=== PATIENT | female | born 1945 | race Caucasian/White ===

== ENCOUNTER → 2016-10-13 | Outpatient (CLI) | payer MEDICARE ==
[~2016-10-13] MED LIST: ATENOLOL50 MG PO; BIAXIN500 MG PO; CLARITIN10 MG PO; DAYPRO600 M1 PO; LIPITOR10 MG PO; LISINOPRIL/HCTZ1 TA4 PO; PRILOSEC40 MG PO; TESSALON PERLE100 M1 PO; ZYRTEC10 M1 PO
== END | disposition home or self-care (01) ==
LOC: MRI 10:35
DX: S83.421A Sprain of lateral collateral ligament of right knee, initial encounter (principal); M17.11 Unilateral primary osteoarthritis, right knee; S83.241A Other tear of medial meniscus, current injury, right knee, initial encounter; S83.281A Other tear of lateral meniscus, current injury, right knee, initial encounter; M71.21 Synovial cyst of popliteal space [Baker], right knee; M25.461 Effusion, right knee; X58.XXXA Exposure to other specified factors, initial encounter; Y93.89 Activity, other specified; Y92.89 Other specified places as the place of occurrence of the external cause; Y99.8 Other external cause status

== ENCOUNTER → 2018-11-06 | Outpatient (CLI) | payer MEDICARE ==
--- NOTE | ~2018-11-06 | EKG ---
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
[2018-11-06 10:32] LABS: BASO % 0.2 % (0.0-1.0); EOS # 0.1 10*3/uL (0.0-0.4); EOS % 1.7 % (1.0-4.0); HEMATOCRIT 39.2 % (37.0-47.0); HEMOGLOBIN 12.2 g/dl (12.0-16.0); LYMPH # 1.8 10*3/uL (1.3-4.4); LYMPH % 22.4 % (27.0-41.0); MEAN CELL VOLUME 90.7 fl (81.0-99.0); MEAN CORPUSCULAR HGB 28.2 pg (27.0-31.0); MEAN CORPUSCULAR HGB CONC 31.1 g/dl (33.0-37.0); MONO # 0.9 10*3/uL (0.1-1.0); MONO % 10.8 % (3.0-9.0); NEUT # 5.3 10*3/uL (2.3-7.9); NEUT % 64.7 % (47.0-73.0); PLATELET COUNT AUTOMATED 216 10*3/uL (130-400); RED BLOOD COUNT 4.32 10*6/uL (4.10-5.10); RED CELL DISTRI WIDTH 14.5 % (0-14.5); WHITE BLOOD COUNT 8.2 10*3/uL (4.8-10.8)
[2018-11-06 11:04] LABS: ALBUMIN 3.5 gm/dl (3.1-4.5); CREATININE 1.14 mg/dL (0.55-1.02); POTASSIUM 4.2 mmol/L (3.5-5.1); TOTAL PROTEIN 7.1 gm/dL (6.4-8.2)
[2018-11-06 11:21] LABS: VITAMIN D, 25-HYDROXY 42.1 ng/mL (30-100)
== END | disposition home or self-care (01) ==
LOC: RESCLI 00:17
PROVIDERS: Hospitalist
DX: K21.9 Gastro-esophageal reflux disease without esophagitis (principal); R60.0 Localized edema; I10 Essential (primary) hypertension; E78.00 Pure hypercholesterolemia, unspecified; E78.5 Hyperlipidemia, unspecified; Z76.89 Persons encountering health services in other specified circumstances; Z72.0 Tobacco use; Z79.899 Other long term (current) drug therapy; Z88.8 Allergy status to other drugs, medicaments and biological substances

== ENCOUNTER → 2018-11-20 | Outpatient (CLI) | payer MEDICARE ==
--- NOTE | ~2018-11-20 | PF ---
[place], [place] PULMONARY FUNCTION TEST NAME: [id number] UNIT #: [id number] ROOM: DOCTOR: SHERRY HAN MD,DALE BIRTHDATE: [birth year] DOS: 11/20/2018 PULMONARY FUNCTION TEST ORDERED BY: Anibal Gallegos MD. HISTORY: The patient is recorded as a 73-year-old female, height of 68 inches, weight of 245 pounds, BMI 37.3. The patient reported symptoms of shortness of breath with exertion. Tobacco use was noted 1 pack of cigarettes per day for 50 years. Tobacco cessation reported 1 year ago. SPIROMETRY: FVC of 3.15 liters, 99% predicted value. The FEV1 of 2.27 liters, 93% predicted value. The ratio of FEV1/FVC was 72%. Flow volume loop was noted as normal. LUNG VOLUME: Thoracic gas volume was recorded as 107%, residual volume 141%, total lung capacity of 118%. The patient's airway resistance and passive conductance was normal. The patient's lung diffusion noted as moderately decreased without correction of carbon monoxide and hemoglobin values. FINAL IMPRESSION: The current test was noted essentially normal except [id number] reduction in lung diffusion, etiology unclear to be correlated with patient's clinical history and radiology data. DALE POWELL MD CM:PFREPORT:PULMONARY FUNCTION TEST [id number] DALE HAN MD
== END | disposition home or self-care (01) ==
LOC: CP 08:15
DX: R06.09 Other forms of dyspnea (principal)

== ENCOUNTER → 2019-02-19 | Outpatient (CLI) | payer MEDICARE | END | disposition home or self-care (01) | LOC: RESCLI 02:18 | DX: I10 Essential (primary) hypertension (principal); E78.5 Hyperlipidemia, unspecified; K21.9 Gastro-esophageal reflux disease without esophagitis; F32.9 Major depressive disorder, single episode, unspecified; L40.9 Psoriasis, unspecified; E55.9 Vitamin D deficiency, unspecified; F17.200 Nicotine dependence, unspecified, uncomplicated; Z79.899 Other long term (current) drug therapy ==

== ENCOUNTER → 2019-03-26 | Outpatient (CLI) | payer MEDICARE | END | disposition home or self-care (01) | LOC: RESCLI 02:05 | PROVIDERS: Internal Medicine | DX: I10 Essential (primary) hypertension (principal); R53.83 Other fatigue; E78.5 Hyperlipidemia, unspecified; K21.9 Gastro-esophageal reflux disease without esophagitis; L40.9 Psoriasis, unspecified; E55.9 Vitamin D deficiency, unspecified; F17.200 Nicotine dependence, unspecified, uncomplicated; F32.9 Major depressive disorder, single episode, unspecified; Z79.899 Other long term (current) drug therapy; Z90.710 Acquired absence of both cervix and uterus; Z90.89 Acquired absence of other organs; Z88.9 Allergy status to unspecified drugs, medicaments and biological substances; Z68.37 Body mass index [BMI] 37.0-37.9, adult ==

== ENCOUNTER 2019-04-01 11:15 | Emergency (ER) | payer MEDICARE ==
[~2019-04-01] VITALS: Ht 172 cm; Wt 102.1 kg
--- NOTE | ~2019-04-01 | EKG ---
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
[2019-04-01 11:41] LABS: BASO % 0.2 % (0.0-1.0); EOS # 0.1 10*3/uL (0.0-0.4); EOS % 0.5 % (1.0-4.0); HEMATOCRIT 39.7 % (37.0-47.0); HEMOGLOBIN 12.5 g/dl (12.0-16.0); LYMPH # 1.4 10*3/uL (1.3-4.4); LYMPH % 14.3 % (27.0-41.0); MEAN CELL VOLUME 88.8 fl (81.0-99.0); MEAN CORPUSCULAR HGB CONC 31.5 g/dl (33.0-37.0); MEAN PLATELET VOLUME 9.1 fl (9.6-12.3); MONO # 0.9 10*3/uL (0.1-1.0); MONO % 9.1 % (3.0-9.0); NEUT # 7.2 10*3/uL (2.3-7.9); NEUT % 75.4 % (47.0-73.0); PLATELET COUNT AUTOMATED 215 10*3/uL (130-400); RED BLOOD COUNT 4.47 10*6/uL (4.10-5.10); WHITE BLOOD COUNT 9.5 10*3/uL (4.8-10.8)
[2019-04-01 11:59] LABS: ALBUMIN 3.3 gm/dl (3.1-4.5); CREATININE 1.22 mg/dL (0.55-1.02); POTASSIUM 4.3 mmol/L (3.5-5.1)
== END 2019-04-01 14:02 | disposition home or self-care (01) ==
LOC: ED 11:15
PROVIDERS: Emergency Medicine
DX: R20.0 Anesthesia of skin (principal); R20.2 Paresthesia of skin; Z79.899 Other long term (current) drug therapy

== ENCOUNTER → 2019-05-02 | Outpatient (CLI) | payer MEDICARE | END | disposition home or self-care (01) | LOC: RESCLI 00:21 | DX: I10 Essential (primary) hypertension (principal); E78.5 Hyperlipidemia, unspecified; K21.9 Gastro-esophageal reflux disease without esophagitis; F32.9 Major depressive disorder, single episode, unspecified; Z79.899 Other long term (current) drug therapy; Z90.710 Acquired absence of both cervix and uterus; Z90.89 Acquired absence of other organs ==

== ENCOUNTER 2019-05-25 10:21 | Emergency (ER) | payer MEDICARE ==
[2019-05-25 11:04] LABS: BASO % 0.2 % (0.0-1.0); EOS % 0.4 % (1.0-4.0); HEMATOCRIT 39.8 % (37.0-47.0); HEMOGLOBIN 12.5 g/dl (12.0-16.0); LYMPH # 1.1 10*3/uL (1.3-4.4); MEAN CELL VOLUME 87.9 fl (81.0-99.0); MEAN CORPUSCULAR HGB 27.6 pg (27.0-31.0); MEAN CORPUSCULAR HGB CONC 31.4 g/dl (33.0-37.0); MEAN PLATELET VOLUME 9.7 fl (9.6-12.3); MONO # 0.7 10*3/uL (0.1-1.0); MONO % 6.3 % (3.0-9.0); NEUT # 9.1 10*3/uL (2.3-7.9); NEUT % 82.6 % (47.0-73.0); PLATELET COUNT AUTOMATED 226 10*3/uL (130-400); RED BLOOD COUNT 4.53 10*6/uL (4.10-5.10); RED CELL DISTRI WIDTH 15.1 % (0-14.5)
[2019-05-25 11:09] LABS: BILIRUBIN NEGATIVE (NEGATIVE); BLOOD NEGATIVE (NEGATIVE); CLARITY SL CLOUDY (CLEAR); COLOR YELLOW (YELLOW); GLUCOSE NEGATIVE (NEGATIVE); KETONE NEGATIVE (NEGATIVE); LEUKO ESTERASE NEGATIVE (NEGATIVE); NITRITE NEGATIVE (NEGATIVE); PH 5.5 (5.0-9.0); UROBILINOGEN 0.2 E.U./dl (0.2-1.0)
[2019-05-25 11:19] LABS: ACT PARTIAL THROMBO TIME 23.9 SECONDS (20.0-32.1); INTERNATIONAL NORM RATIO 0.9 (2.0-3.5)
[2019-05-25 11:23] LABS: ALBUMIN 3.6 gm/dl (3.1-4.5); ALKALINE PHOSPHATASE 101 U/L (45-117); BUN 14 mg/dl (7-24); CHLORIDE 108 mmol/L (98-107); CREATININE 1.11 mg/dL (0.55-1.02); POTASSIUM 4.2 mmol/L (3.5-5.1); SGOT/AST 14 IU/L (3-35); SGPT/ALT 14 U/L (12-78); SODIUM 140 mmol/L (136-145); TOTAL PROTEIN 6.9 gm/dL (6.4-8.2)
[2019-05-25 11:26] LABS: TROPONIN I < 0.015 ng/ml (<0.045)
[2019-05-25 11:32] LABS: RBC 0-2 rbc/hpf (0-2)
== END 2019-05-25 12:01 | disposition short-term general hospital (02) ==
LOC: ED 10:21 → EDBD 10:24 → ED 10:24
PROVIDERS: Emergency Medicine
DX: I63.9 Cerebral infarction, unspecified (principal); I10 Essential (primary) hypertension; K21.9 Gastro-esophageal reflux disease without esophagitis; Z79.899 Other long term (current) drug therapy

== ENCOUNTER 2019-07-09 06:47 | Emergency (ER) | payer MEDICARE ==
[~2019-07-09] VITALS: Wt 109.8 kg
== END 2019-07-09 08:54 | disposition home or self-care (01) ==
LOC: ED 06:47
DX: K94.23 Gastrostomy malfunction (principal); I10 Essential (primary) hypertension; Z79.899 Other long term (current) drug therapy

== ENCOUNTER 2019-07-28 12:24 | Inpatient (IN) | payer MEDICARE ==
[~2019-07-28] VITALS: Ht 167.6 cm; Wt 103.0 kg
[2019-07-28] VITALS (9 sets, daily range): BP systolic 84–116; BP diastolic 33–68
[2019-07-28 14:17] LABS: BASO % 0.3 % (0.0-1.0); EOS # 0.1 10*3/uL (0.0-0.4); EOS % 0.6 % (1.0-4.0); HEMATOCRIT 38.5 % (37.0-47.0); HEMOGLOBIN 12.2 g/dl (12.0-16.0); LYMPH # 1.6 10*3/uL (1.3-4.4); LYMPH % 14.4 % (27.0-41.0); MEAN CELL VOLUME 87.5 fl (81.0-99.0); MEAN CORPUSCULAR HGB 27.7 pg (27.0-31.0); MEAN CORPUSCULAR HGB CONC 31.7 g/dl (33.0-37.0); MEAN PLATELET VOLUME 10.2 fl (9.6-12.3); MONO # 0.7 10*3/uL (0.1-1.0); MONO % 6.5 % (3.0-9.0); NEUT # 8.9 10*3/uL (2.3-7.9); NEUT % 77.6 % (47.0-73.0); PLATELET COUNT AUTOMATED 320 10*3/uL (130-400); RED CELL DISTRI WIDTH 17.8 % (0-14.5); WHITE BLOOD COUNT 11.4 10*3/uL (4.8-10.8)
[2019-07-28 14:28] LABS: ACT PARTIAL THROMBO TIME 27.9 SECONDS (20.0-32.1); INTERNATIONAL NORM RATIO 1.1 (2.0-3.5)
[2019-07-28 14:31] LABS: ALBUMIN 3.2 gm/dl (3.1-4.5); ALKALINE PHOSPHATASE 103 U/L (45-117); BUN 111 mg/dl (7-24); CHLORIDE 113 mmol/L (98-107); CREATININE 9.74 mg/dL (0.55-1.02); LIPASE 274 U/L (73-393); POTASSIUM 4.6 mmol/L (3.5-5.1); SGOT/AST 18 IU/L (3-35); SGPT/ALT 13 U/L (12-78); SODIUM 144 mmol/L (136-145); TOTAL PROTEIN 7.8 gm/dL (6.4-8.2)
[2019-07-28 14:33] LABS: TROPONIN I < 0.015 ng/ml (<0.045)
[2019-07-28 15:18] LABS: BILIRUBIN NEGATIVE (NEGATIVE); BLOOD NEGATIVE (NEGATIVE); CLARITY CLEAR (CLEAR); COLOR YELLOW (YELLOW); GLUCOSE NEGATIVE (NEGATIVE); KETONE NEGATIVE (NEGATIVE); LEUKO ESTERASE 2+ (NEGATIVE); NITRITE POSITIVE (NEGATIVE); SPECIFIC GRAVITY 1.025 (1.005-1.030); UROBILINOGEN 0.2 E.U./dl (0.2-1.0)
[2019-07-28 15:19] LABS: BACTERIA 2+
[2019-07-28] MEDS ORDERED: ASPIRIN CHEWABL81 MG PO (18:32)
[2019-07-28] MEDS ORDERED: FIBERCON625 MG PO (18:37)
[2019-07-28] MEDS ORDERED: HYDR25T PO (18:38)
[2019-07-28] MEDS ORDERED: ZESTRIL40 MG PO (18:39)
[2019-07-28] MEDS ORDERED: QUESTRAN LIGHT4 GM PO (18:40)
[2019-07-28] MEDS ORDERED: ACCUNEB 0.1.25 MG/1 INH (18:41)
[2019-07-28] MEDS ORDERED: ELIQUIS5 M1 PO (18:42)
[2019-07-28] MEDS ORDERED: PREVACID30 M2 PO (18:44)
[2019-07-28] MEDS ORDERED: TOPROL XL100 MG PO (18:45)
[2019-07-28] MEDS ORDERED: Oscal,Oyster S500 MG PO (18:49)
[2019-07-28] MEDS ORDERED: BUDESONIDE0.25 MG/2 INH (19:17)
[2019-07-28] MEDS ORDERED: LOMOTIL 2.5-0.1 EACH PO (19:19)
[2019-07-28] MEDS ORDERED: POTASSIUM CHLO20 MEQ PO (19:19)
[2019-07-29 00:21] VITALS: BP 118/64
[2019-07-29 06:14] LABS: BASO % 0.2 % (0.0-1.0); EOS # 0.1 10*3/uL (0.0-0.4); EOS % 1.5 % (1.0-4.0); HEMATOCRIT 37.2 % (37.0-47.0); HEMOGLOBIN 11.6 g/dl (12.0-16.0); LYMPH # 1.9 10*3/uL (1.3-4.4); LYMPH % 23.7 % (27.0-41.0); MEAN CELL VOLUME 88.6 fl (81.0-99.0); MEAN CORPUSCULAR HGB 27.6 pg (27.0-31.0); MEAN CORPUSCULAR HGB CONC 31.2 g/dl (33.0-37.0); MEAN PLATELET VOLUME 9.9 fl (9.6-12.3); MONO # 0.8 10*3/uL (0.1-1.0); MONO % 9.9 % (3.0-9.0); NEUT # 5.1 10*3/uL (2.3-7.9); NEUT % 63.8 % (47.0-73.0); PLATELET COUNT AUTOMATED 253 10*3/uL (130-400); RED CELL DISTRI WIDTH 17.9 % (0-14.5)
[2019-07-29 06:34] LABS: ALBUMIN 2.9 gm/dl (3.1-4.5); POTASSIUM 3.9 mmol/L (3.5-5.1)
[2019-07-29 06:37] LABS: CREATININE 8.37 mg/dL (0.55-1.02); PHOSPHOROUS 7.6 mg/dL (2.5-4.9); TOTAL PROTEIN 6.7 gm/dL (6.4-8.2)
[2019-07-29 08:00] VITALS: BP 125/76
[2019-07-29 12:00] VITALS: BP 112/59
[2019-07-29 16:00] VITALS: BP 131/62
[2019-07-29 20:00] VITALS: BP 130/65
[2019-07-30] VITALS (9 sets, daily range): BP systolic 91–129; BP diastolic 58–93
[2019-07-30 06:22] LABS: BASO % 0.3 % (0.0-1.0); EOS # 0.1 10*3/uL (0.0-0.4); EOS % 1.5 % (1.0-4.0); HEMOGLOBIN 10.6 g/dl (12.0-16.0); LYMPH # 1.7 10*3/uL (1.3-4.4); MEAN CELL VOLUME 88.8 fl (81.0-99.0); MEAN CORPUSCULAR HGB 27.7 pg (27.0-31.0); MEAN CORPUSCULAR HGB CONC 31.2 g/dl (33.0-37.0); MEAN PLATELET VOLUME 9.6 fl (9.6-12.3); MONO # 0.7 10*3/uL (0.1-1.0); MONO % 8.2 % (3.0-9.0); NEUT # 5.3 10*3/uL (2.3-7.9); NEUT % 67.1 % (47.0-73.0); PLATELET COUNT AUTOMATED 250 10*3/uL (130-400); RED BLOOD COUNT 3.83 10*6/uL (4.10-5.10); RED CELL DISTRI WIDTH 17.8 % (0-14.5); WHITE BLOOD COUNT 7.9 10*3/uL (4.8-10.8)
[2019-07-30 06:31] LABS: ALBUMIN 2.8 gm/dl (3.1-4.5); CREATININE 6.93 mg/dL (0.55-1.02); POTASSIUM 3.6 mmol/L (3.5-5.1); TOTAL PROTEIN 6.7 gm/dL (6.4-8.2)
[2019-07-31] VITALS: BP 150/60
[2019-07-31 06:09] LABS: BASO % 0.3 % (0.0-1.0); EOS # 0.1 10*3/uL (0.0-0.4); EOS % 1.3 % (1.0-4.0); HEMATOCRIT 32.5 % (37.0-47.0); HEMOGLOBIN 10.3 g/dl (12.0-16.0); LYMPH # 2.4 10*3/uL (1.3-4.4); LYMPH % 22.2 % (27.0-41.0); MEAN CORPUSCULAR HGB 28.2 pg (27.0-31.0); MEAN CORPUSCULAR HGB CONC 31.7 g/dl (33.0-37.0); MEAN PLATELET VOLUME 10.2 fl (9.6-12.3); MONO # 0.9 10*3/uL (0.1-1.0); MONO % 8.4 % (3.0-9.0); NEUT # 7.3 10*3/uL (2.3-7.9); NEUT % 66.9 % (47.0-73.0); PLATELET COUNT AUTOMATED 204 10*3/uL (130-400); RED BLOOD COUNT 3.65 10*6/uL (4.10-5.10); RED CELL DISTRI WIDTH 17.2 % (0-14.5); WHITE BLOOD COUNT 10.9 10*3/uL (4.8-10.8)
[2019-07-31 06:29] LABS: ALBUMIN 2.6 gm/dl (3.1-4.5); CREATININE 5.12 mg/dL (0.55-1.02); PHOSPHOROUS 4.2 mg/dL (2.5-4.9); TOTAL PROTEIN 6.3 gm/dL (6.4-8.2)
[2019-07-31 06:31] LABS: POTASSIUM 3.3 mmol/L (3.5-5.1)
[2019-07-31 09:30] VITALS: BP 116/76
[2019-07-31 12:00] VITALS: BP 98/56
[2019-07-31 16:00] VITALS: BP 98/73
[2019-07-31 20:00] VITALS: BP 103/64
[2019-07-31 21:45] LABS: CREATININE 4.3 mg/dL (0.55-1.02); POTASSIUM 2.9 mmol/L (3.5-5.1)
[2019-08-01] VITALS (7 sets, daily range): BP systolic 70–123; BP diastolic 49–72
[2019-08-01 06:44] LABS: BASO % 0.3 % (0.0-1.0); EOS # 0.2 10*3/uL (0.0-0.4); EOS % 1.9 % (1.0-4.0); HEMATOCRIT 30.4 % (37.0-47.0); HEMOGLOBIN 9.8 g/dl (12.0-16.0); LYMPH # 2.2 10*3/uL (1.3-4.4); LYMPH % 23.3 % (27.0-41.0); MEAN CELL VOLUME 87.4 fl (81.0-99.0); MEAN CORPUSCULAR HGB 28.2 pg (27.0-31.0); MEAN CORPUSCULAR HGB CONC 32.2 g/dl (33.0-37.0); MEAN PLATELET VOLUME 10.2 fl (9.6-12.3); MONO # 0.6 10*3/uL (0.1-1.0); MONO % 6.4 % (3.0-9.0); NEUT # 6.3 10*3/uL (2.3-7.9); NEUT % 67.5 % (47.0-73.0); PLATELET COUNT AUTOMATED 186 10*3/uL (130-400); RED BLOOD COUNT 3.48 10*6/uL (4.10-5.10); RED CELL DISTRI WIDTH 17.3 % (0-14.5); WHITE BLOOD COUNT 9.3 10*3/uL (4.8-10.8)
[2019-08-01 07:13] LABS: CREATININE 4.04 mg/dL (0.55-1.02); PHOSPHOROUS 3.9 mg/dL (2.5-4.9)
[2019-08-02] VITALS: BP 102/75
[2019-08-02 08:00] VITALS: BP 108/68
[2019-08-02 08:40] LABS: BASO % 0.2 % (0.0-1.0); EOS # 0.3 10*3/uL (0.0-0.4); EOS % 3.1 % (1.0-4.0); HEMATOCRIT 32.7 % (37.0-47.0); HEMOGLOBIN 10.3 g/dl (12.0-16.0); LYMPH % 21.3 % (27.0-41.0); MEAN CELL VOLUME 86.7 fl (81.0-99.0); MEAN CORPUSCULAR HGB 27.3 pg (27.0-31.0); MEAN CORPUSCULAR HGB CONC 31.5 g/dl (33.0-37.0); MEAN PLATELET VOLUME 10.4 fl (9.6-12.3); MONO # 0.6 10*3/uL (0.1-1.0); MONO % 6.8 % (3.0-9.0); NEUT # 6.4 10*3/uL (2.3-7.9); NEUT % 67.9 % (47.0-73.0); PLATELET COUNT AUTOMATED 203 10*3/uL (130-400); RED BLOOD COUNT 3.77 10*6/uL (4.10-5.10); RED CELL DISTRI WIDTH 17.2 % (0-14.5); WHITE BLOOD COUNT 9.5 10*3/uL (4.8-10.8)
[2019-08-02 08:56] LABS: CREATININE 3.08 mg/dL (0.55-1.02); POTASSIUM 3.3 mmol/L (3.5-5.1)
[2019-08-02 12:00] VITALS: BP 110/65
[2019-08-02] MEDS ORDERED: SODIUM BICARBO650 MG PEG (12:33)
== END 2019-08-02 14:00 | disposition other institution (70) | DRG 682 ==
LOC: ED 12:24 → EDHOLD 16:21 → 4E 16:21
PROVIDERS: Internal Medicine; Internal Medicine Nephrology; Physician Assistant; Registered Nurse; Student in an Organized Health Care Education/Training Program; ADMIT Internal Medicine
PROC: 3E0G76Z Introduction of Nutritional Substance into Upper GI, Via Natural or Artificial Opening (ICD-10-PCS; principal; 2019-07-30)
PROC: 0DH63UZ Insertion of Feeding Device into Stomach, Percutaneous Approach (ICD-10-PCS; principal; 2019-07-30)
DX: N17.0 Acute kidney failure with tubular necrosis (principal); I63.9 Cerebral infarction, unspecified; N30.01 Acute cystitis with hematuria; D68.69 Other thrombophilia; E87.0 Hyperosmolality and hypernatremia; J96.10 Chronic respiratory failure, unspecified whether with hypoxia or hypercapnia; E87.2 Acidosis; E46 Unspecified protein-calorie malnutrition; R13.19 Other dysphagia; K29.70 Gastritis, unspecified, without bleeding; I10 Essential (primary) hypertension; E78.00 Pure hypercholesterolemia, unspecified; K21.9 Gastro-esophageal reflux disease without esophagitis; I95.9 Hypotension, unspecified; I48.91 Unspecified atrial fibrillation; E87.6 Hypokalemia; B96.1 Klebsiella pneumoniae [K. pneumoniae] as the cause of diseases classified elsewhere; Z79.899 Other long term (current) drug therapy; I69.320 Aphasia following cerebral infarction; E83.39 Other disorders of phosphorus metabolism; Z79.82 Long term (current) use of aspirin; Z79.01 Long term (current) use of anticoagulants; Z93.1 Gastrostomy status; Z68.34 Body mass index [BMI] 34.0-34.9, adult

== ENCOUNTER 2019-08-15 16:13 | Inpatient (IN) | payer MEDICARE ==
[~2019-08-15] VITALS: Ht 172.7 cm; Wt 93.9 kg
[2019-08-15 16:13] VITALS: BP 102/56
[~2019-08-15 16:13] MED LIST changes: +ACCUNEB 0.1.25 MG/1 INH; +ASPIRIN CHEWABL81 MG PO; +BUDESONIDE0.25 MG/2 INH; +ELIQUIS5 M1 PO; +FIBERCON625 MG PO; +HYDR25T PO; +LOMOTIL 2.5-0.1 EACH PO; +Oscal,Oyster S500 MG PO; +POTASSIUM CHLO20 MEQ PO; +PREVACID30 M2 PO; +QUESTRAN LIGHT4 GM PO; +SODIUM BICARBO650 MG PEG; +TOPROL XL100 MG PO; +ZESTRIL40 MG PO
[2019-08-15 16:55] LABS: BASO # 0.1 10*3/uL (0.0-0.1); BASO % 0.5 % (0.0-1.0); EOS # 0.2 10*3/uL (0.0-0.4); EOS % 2.2 % (1.0-4.0); HEMATOCRIT 42.2 % (37.0-47.0); LYMPH # 2.4 10*3/uL (1.3-4.4); LYMPH % 22.1 % (27.0-41.0); MEAN CELL VOLUME 94.2 fl (81.0-99.0); MEAN CORPUSCULAR HGB 27.9 pg (27.0-31.0); MEAN CORPUSCULAR HGB CONC 29.6 g/dl (33.0-37.0); MEAN PLATELET VOLUME 10.3 fl (9.6-12.3); MONO # 1.1 10*3/uL (0.1-1.0); MONO % 10.7 % (3.0-9.0); NEUT # 6.8 10*3/uL (2.3-7.9); NEUT % 63.5 % (47.0-73.0); PLATELET COUNT AUTOMATED 305 10*3/uL (130-400); RED BLOOD COUNT 4.48 10*6/uL (4.10-5.10); RED CELL DISTRI WIDTH 18.9 % (0-14.5); WHITE BLOOD COUNT 10.7 10*3/uL (4.8-10.8)
[2019-08-15 17:02] LABS: BILIRUBIN NEGATIVE (NEGATIVE); CLARITY SL CLOUDY (CLEAR); COLOR YELLOW (YELLOW); GLUCOSE NEGATIVE (NEGATIVE); KETONE NEGATIVE (NEGATIVE)
[2019-08-15 17:03] LABS: BLOOD NEGATIVE (NEGATIVE); LEUKO ESTERASE NEGATIVE (NEGATIVE); NITRITE NEGATIVE (NEGATIVE); UROBILINOGEN 0.2 E.U./dl (0.2-1.0)
[2019-08-15 17:08] LABS: ACT PARTIAL THROMBO TIME 25.7 SECONDS (20.0-32.1); INTERNATIONAL NORM RATIO 1.1 (2.0-3.5)
[2019-08-15 17:11] LABS: ALBUMIN 2.8 gm/dl (3.1-4.5); ALKALINE PHOSPHATASE 134 U/L (45-117); BUN 68 mg/dl (7-24); CREATININE 2.21 mg/dL (0.55-1.02); LIPASE 199 U/L (73-393); SGOT/AST 55 IU/L (3-35); SGPT/ALT 67 U/L (12-78); SODIUM 157 mmol/L (136-145); TOTAL PROTEIN 7.1 gm/dL (6.4-8.2)
[2019-08-15 17:11] LABS: BACTERIA 1+
[2019-08-15 17:16] LABS: CHLORIDE 131 mmol/L (98-107); TROPONIN I < 0.015 ng/ml (<0.045)
[2019-08-15] MEDS ORDERED: LEXAPRO10 MG PO (19:04)
[2019-08-15] MEDS ORDERED: LOMOTIL 2.5-0.1 EACH PO (19:05)
[2019-08-15] MEDS ORDERED: OSCAL/D,OYSTER250 MG PO (19:06)
[2019-08-15] MEDS ORDERED: PULMICORT RES0.25 M1 INH (19:08)
[2019-08-15] MEDS ORDERED: ZOFRAN4 MG PO (19:09)
[2019-08-15] MEDS ORDERED: TYLENOL325 M2 PO (19:09)
[2019-08-15 19:30] VITALS: BP 106/55
[2019-08-16] VITALS: BP 122/79
[2019-08-16 00:42] LABS: ALBUMIN 2.7 gm/dl (3.1-4.5); CREATININE 2.2 mg/dL (0.55-1.02); POTASSIUM 4.7 mmol/L (3.5-5.1); TOTAL PROTEIN 6.8 gm/dL (6.4-8.2)
[2019-08-16 06:14] LABS: BASO # 0.1 10*3/uL (0.0-0.1); BASO % 0.5 % (0.0-1.0); EOS # 0.2 10*3/uL (0.0-0.4); EOS % 2.3 % (1.0-4.0); HEMATOCRIT 39.3 % (37.0-47.0); LYMPH # 2.2 10*3/uL (1.3-4.4); LYMPH % 23.2 % (27.0-41.0); MEAN CELL VOLUME 93.3 fl (81.0-99.0); MEAN PLATELET VOLUME 11.1 fl (9.6-12.3); MONO % 10.1 % (3.0-9.0); NEUT % 62.7 % (47.0-73.0); PLATELET COUNT AUTOMATED 296 10*3/uL (130-400); RED BLOOD COUNT 4.21 10*6/uL (4.10-5.10); RED CELL DISTRI WIDTH 18.8 % (0-14.5); WHITE BLOOD COUNT 9.5 10*3/uL (4.8-10.8)
[2019-08-16 06:24] LABS: CREATININE 1.97 mg/dL (0.55-1.02); PHOSPHOROUS 3.6 mg/dL (2.5-4.9); POTASSIUM 4.1 mmol/L (3.5-5.1)
[2019-08-16 06:35] LABS: FREE T4 0.9 ng/dl (0.76-1.46); THYROID STIM HORMONE (HS) 1.52 uIU/ml (0.358-4.75)
[2019-08-16 07:09] LABS: VITAMIN D, 25-HYDROXY 46.4 ng/mL (30-100)
[2019-08-16 12:00] VITALS: BP 103/76
[2019-08-16 16:00] VITALS: BP 111/69
[2019-08-16 16:29] LABS: ALBUMIN 2.5 gm/dl (3.1-4.5); CREATININE 1.86 mg/dL (0.55-1.02); PHOSPHOROUS 3.2 mg/dL (2.5-4.9); POTASSIUM 3.8 mmol/L (3.5-5.1)
[2019-08-16 20:00] VITALS: BP 98/74
[2019-08-17] VITALS: BP 130/72
[2019-08-17 05:54] LABS: BASO % 0.5 % (0.0-1.0); EOS # 0.2 10*3/uL (0.0-0.4); EOS % 1.8 % (1.0-4.0); HEMATOCRIT 36.2 % (37.0-47.0); LYMPH # 2.5 10*3/uL (1.3-4.4); LYMPH % 28.6 % (27.0-41.0); MEAN CELL VOLUME 91.9 fl (81.0-99.0); MEAN CORPUSCULAR HGB 28.2 pg (27.0-31.0); MEAN CORPUSCULAR HGB CONC 30.7 g/dl (33.0-37.0); MEAN PLATELET VOLUME 10.8 fl (9.6-12.3); MONO # 0.9 10*3/uL (0.1-1.0); MONO % 10.5 % (3.0-9.0); NEUT # 4.9 10*3/uL (2.3-7.9); NEUT % 56.8 % (47.0-73.0); PLATELET COUNT AUTOMATED 266 10*3/uL (130-400); RED BLOOD COUNT 3.94 10*6/uL (4.10-5.10); RED CELL DISTRI WIDTH 17.9 % (0-14.5); WHITE BLOOD COUNT 8.7 10*3/uL (4.8-10.8)
[2019-08-17 06:23] LABS: ALBUMIN 2.5 gm/dl (3.1-4.5); CREATININE 1.66 mg/dL (0.55-1.02); PHOSPHOROUS 3.2 mg/dL (2.5-4.9); POTASSIUM 3.7 mmol/L (3.5-5.1); TOTAL PROTEIN 6.2 gm/dL (6.4-8.2)
[2019-08-17 07:43] VITALS: BP 110/60
[2019-08-17 12:00] VITALS: BP 117/72
[2019-08-17 16:00] VITALS: BP 143/72
[2019-08-17 20:00] VITALS: BP 120/59
[2019-08-18] VITALS: BP 130/66
[2019-08-18 06:15] LABS: BASO % 0.3 % (0.0-1.0); EOS # 0.1 10*3/uL (0.0-0.4); EOS % 1.3 % (1.0-4.0); HEMATOCRIT 32.4 % (37.0-47.0); LYMPH # 2.6 10*3/uL (1.3-4.4); LYMPH % 25.2 % (27.0-41.0); MEAN CELL VOLUME 89.3 fl (81.0-99.0); MEAN CORPUSCULAR HGB 28.1 pg (27.0-31.0); MEAN CORPUSCULAR HGB CONC 31.5 g/dl (33.0-37.0); MEAN PLATELET VOLUME 10.3 fl (9.6-12.3); MONO # 0.9 10*3/uL (0.1-1.0); MONO % 8.4 % (3.0-9.0); NEUT # 6.4 10*3/uL (2.3-7.9); NEUT % 62.5 % (47.0-73.0); PLATELET COUNT AUTOMATED 232 10*3/uL (130-400); RED BLOOD COUNT 3.63 10*6/uL (4.10-5.10); WHITE BLOOD COUNT 10.3 10*3/uL (4.8-10.8)
[2019-08-18 06:25] LABS: CREATININE 1.37 mg/dL (0.55-1.02); POTASSIUM 3.3 mmol/L (3.5-5.1)
[2019-08-18 08:00] VITALS: BP 100/56
[2019-08-18 12:00] VITALS: BP 108/68
[2019-08-18 16:00] VITALS: BP 117/65
[2019-08-18 20:00] VITALS: BP 116/49
[2019-08-19] VITALS: BP 108/68
[2019-08-19 06:05] LABS: HEMATOCRIT 33.1 % (37.0-47.0); MEAN CELL VOLUME 88.3 fl (81.0-99.0); MEAN CORPUSCULAR HGB CONC 31.7 g/dl (33.0-37.0); MEAN PLATELET VOLUME 10.7 fl (9.6-12.3); PLATELET COUNT AUTOMATED 240 10*3/uL (130-400); RED BLOOD COUNT 3.75 10*6/uL (4.10-5.10); RED CELL DISTRI WIDTH 16.5 % (0-14.5); WHITE BLOOD COUNT 12.5 10*3/uL (4.8-10.8)
[2019-08-19 06:30] LABS: CREATININE 1.24 mg/dL (0.55-1.02); POTASSIUM 3.4 mmol/L (3.5-5.1)
[2019-08-19 06:52] LABS: BASOPHILS 1 % (0-1); TOTAL CELLS COUNTED 100 #CELLS
[2019-08-19 06:53] LABS: PLATELET SUFFICIENCY NORMAL (NORMAL)
[2019-08-19 08:00] VITALS: BP 123/76
[2019-08-19] MEDS ORDERED: JEVITY 1.5 CAL237 ML PEG (10:33)
[2019-08-19] MEDS ORDERED: POTASSIUM CHLO20 MEQ PO (10:35)
[2019-08-19 16:00] VITALS: BP 100/73
[2019-08-19 20:00] VITALS: BP 121/66
[2019-08-20] VITALS: BP 142/75
[2019-08-20 06:19] LABS: BASO % 0.3 % (0.0-1.0); EOS # 0.1 10*3/uL (0.0-0.4); EOS % 1.1 % (1.0-4.0); HEMATOCRIT 31.3 % (37.0-47.0); LYMPH # 2.4 10*3/uL (1.3-4.4); LYMPH % 19.2 % (27.0-41.0); MEAN CORPUSCULAR HGB 28.3 pg (27.0-31.0); MEAN CORPUSCULAR HGB CONC 32.9 g/dl (33.0-37.0); MEAN PLATELET VOLUME 10.6 fl (9.6-12.3); MONO % 7.8 % (3.0-9.0); NEUT # 8.6 10*3/uL (2.3-7.9); NEUT % 69.2 % (47.0-73.0); PLATELET COUNT AUTOMATED 251 10*3/uL (130-400); RED BLOOD COUNT 3.64 10*6/uL (4.10-5.10); RED CELL DISTRI WIDTH 16.9 % (0-14.5); WHITE BLOOD COUNT 12.4 10*3/uL (4.8-10.8)
[2019-08-20 06:23] LABS: CREATININE 1.11 mg/dL (0.55-1.02); POTASSIUM 3.6 mmol/L (3.5-5.1)
[2019-08-20 08:00] VITALS: BP 140/72
== END 2019-08-20 11:45 | disposition other institution (70) | DRG 70 ==
LOC: ED 16:13 → 4E 18:19 → EDHOLD 18:19 → 4E 18:30
PROVIDERS: Emergency Medicine; Hospitalist; Internal Medicine; Internal Medicine Nephrology; ADMIT Internal Medicine
DX: G93.89 Other specified disorders of brain (principal); G93.41 Metabolic encephalopathy; N17.0 Acute kidney failure with tubular necrosis; E43 Unspecified severe protein-calorie malnutrition; E87.0 Hyperosmolality and hypernatremia; J96.10 Chronic respiratory failure, unspecified whether with hypoxia or hypercapnia; E86.0 Dehydration; E87.8 Other disorders of electrolyte and fluid balance, not elsewhere classified; Z93.1 Gastrostomy status; K21.9 Gastro-esophageal reflux disease without esophagitis; R47.02 Dysphasia; I48.0 Paroxysmal atrial fibrillation; N18.9 Chronic kidney disease, unspecified; D64.9 Anemia, unspecified; E87.6 Hypokalemia; R73.9 Hyperglycemia, unspecified; E83.41 Hypermagnesemia; R74.0 Nonspecific elevation of levels of transaminase and lactic acid dehydrogenase [LDH]; E78.1 Pure hyperglyceridemia; I12.9 Hypertensive chronic kidney disease with stage 1 through stage 4 chronic kidney disease, or unspecified chronic kidney disease; Z86.718 Personal history of other venous thrombosis and embolism; Z79.899 Other long term (current) drug therapy; Z79.82 Long term (current) use of aspirin; Z79.01 Long term (current) use of anticoagulants; Z68.31 Body mass index [BMI] 31.0-31.9, adult; I69.398 Other sequelae of cerebral infarction

== ENCOUNTER 2019-12-03 23:32 | Emergency (ER) | payer MEDICARE ==
[~2019-12-03 23:32] MED LIST changes: +JEVITY 1.5 CAL237 ML PEG; +LEXAPRO10 MG PO; +OSCAL/D,OYSTER250 MG PO; +PULMICORT RES0.25 M1 INH; +TYLENOL325 M2 PO; +ZOFRAN4 MG PO
[2019-12-04 00:09] LABS: BASO % 0.2 % (0.0-1.0); EOS # 0.3 10*3/uL (0.0-0.4); EOS % 3.1 % (1.0-4.0); HEMATOCRIT 36.2 % (37.0-47.0); LYMPH # 2.8 10*3/uL (1.3-4.4); LYMPH % 31.4 % (27.0-41.0); MEAN CELL VOLUME 90.5 fl (81.0-99.0); MEAN CORPUSCULAR HGB 28.5 pg (27.0-31.0); MEAN CORPUSCULAR HGB CONC 31.5 g/dl (33.0-37.0); MEAN PLATELET VOLUME 10.8 fl (9.6-12.3); MONO # 0.9 10*3/uL (0.1-1.0); MONO % 10.6 % (3.0-9.0); NEUT # 4.8 10*3/uL (2.3-7.9); NEUT % 54.5 % (47.0-73.0); PLATELET COUNT AUTOMATED 214 10*3/uL (130-400); RED CELL DISTRI WIDTH 14.1 % (0-14.5); WHITE BLOOD COUNT 8.8 10*3/uL (4.8-10.8)
[2019-12-04 00:26] LABS: ALKALINE PHOSPHATASE 71 U/L (45-117); BUN 9 mg/dl (7-24); CHLORIDE 108 mmol/L (98-107); LIPASE 115 U/L (73-393); POTASSIUM 3.7 mmol/L (3.5-5.1); SGOT/AST 23 IU/L (3-35); SGPT/ALT 12 U/L (12-78); SODIUM 139 mmol/L (136-145)
[2019-12-04 00:27] LABS: TROPONIN I < 0.015 ng/ml (<0.045)
[2019-12-04] MEDS ORDERED: SEPTDS PO (01:51)
[2019-12-04 01:54] LABS: BILIRUBIN NEGATIVE (NEGATIVE); BLOOD TRACE-LYSED (NEGATIVE); CLARITY SL CLOUDY (CLEAR); COLOR YELLOW (YELLOW); GLUCOSE NEGATIVE (NEGATIVE); KETONE NEGATIVE (NEGATIVE); LEUKO ESTERASE 2+ (NEGATIVE); NITRITE NEGATIVE (NEGATIVE); SPECIFIC GRAVITY 1.005 (1.005-1.030); UROBILINOGEN 0.2 E.U./dl (0.2-1.0)
[2019-12-04 01:58] LABS: BACTERIA 2+; WBC TNTC wbc/hpf (0-5)
== END 2019-12-04 02:04 | disposition home or self-care (01) ==
LOC: ED 23:32
PROVIDERS: Emergency Medicine
DX: K59.00 Constipation, unspecified (principal); N39.0 Urinary tract infection, site not specified; K21.9 Gastro-esophageal reflux disease without esophagitis; I11.0 Hypertensive heart disease with heart failure; I50.9 Heart failure, unspecified; Z79.899 Other long term (current) drug therapy

== ENCOUNTER 2020-01-26 21:06 | Emergency (ER) | payer MEDICARE ==
[~2020-01-26] VITALS: Ht 167.6 cm; Wt 72.6 kg
[~2020-01-26 21:06] MED LIST changes: +SEPTDS PO
== END 2020-01-26 23:45 | disposition home or self-care (01) ==
LOC: ED 21:06
DX: S00.03XA Contusion of scalp, initial encounter (principal); K21.9 Gastro-esophageal reflux disease without esophagitis; I10 Essential (primary) hypertension; E78.00 Pure hypercholesterolemia, unspecified; I48.91 Unspecified atrial fibrillation; Z79.899 Other long term (current) drug therapy; Z79.2 Long term (current) use of antibiotics; X58.XXXA Exposure to other specified factors, initial encounter; Y93.89 Activity, other specified; Y92.89 Other specified places as the place of occurrence of the external cause; Y99.8 Other external cause status

== ENCOUNTER 2021-09-06 17:17 | Inpatient (IN) | payer MEDICARE ==
[~2021-09-06] VITALS: Ht 157.4 cm; Wt 83.5 kg
[2021-09-06 17:25] VITALS: BP 156/78
[2021-09-06] MEDS ORDERED: OMEPRAZOLE40 MG PO (19:26)
[2021-09-06] MEDS ORDERED: ESCITALOPRAM OX10 MG PO (19:27)
[2021-09-06] MEDS ORDERED: POTASSIUM CHLO20 ME4 PO (19:28)
[2021-09-06] MEDS ORDERED: PRAMIPEXOLE DI0.5 MG PO (19:29)
[2021-09-07 12:12] VITALS: BP 138/79
[2021-09-07 15:40] VITALS: BP 131/70
[2021-09-07 20:00] VITALS: BP 152/67
[2021-09-08] VITALS: BP 131/51
[2021-09-08 06:18] LABS: BUN 17 mg/dl (7-24); CHLORIDE 104 mmol/L (98-107); CREATININE 1.06 mg/dL (0.55-1.02); POTASSIUM 3.8 mmol/L (3.5-5.1); SODIUM 138 mmol/L (136-145)
[2021-09-08 06:27] LABS: BASO % 0.3 % (0.0-1.0); EOS # 0.1 10*3/uL (0.0-0.4); EOS % 1.8 % (1.0-4.0); HEMATOCRIT 28.3 % (37.0-47.0); LYMPH # 1.7 10*3/uL (1.3-4.4); MEAN CELL VOLUME 77.5 fl (81.0-99.0); MEAN CORPUSCULAR HGB 23.3 pg (27.0-31.0); MEAN PLATELET VOLUME 9.6 fl (9.6-12.3); MONO # 0.8 10*3/uL (0.1-1.0); MONO % 12.6 % (3.0-9.0); NEUT # 3.6 10*3/uL (2.3-7.9); PLATELET COUNT AUTOMATED 207 10*3/uL (130-400); RED BLOOD COUNT 3.65 10*6/uL (4.10-5.10); RED CELL DISTRI WIDTH 16.8 % (0-14.5); WHITE BLOOD COUNT 6.1 10*3/uL (4.8-10.8)
[2021-09-08 08:00] VITALS: BP 143/64
[2021-09-08 12:00] VITALS: BP 126/51
[2021-09-08 16:00] VITALS: BP 156/62
[2021-09-08 20:00] VITALS: BP 137/89
[2021-09-09] VITALS: BP 133/75
[2021-09-09 08:00] VITALS: BP 135/67
[2021-09-09 12:00] VITALS: BP 125/69
== END 2021-09-09 12:48 | DRG 202 ==
LOC: ED 17:17 → 4E 18:47 → EDHOLD 18:47 → 4E 09-07 17:10
PROVIDERS: ADMIT Internal Medicine; ATTEND Internal Medicine
DX: J45.21 Mild intermittent asthma with (acute) exacerbation (principal); I48.21 Permanent atrial fibrillation; F33.0 Major depressive disorder, recurrent, mild; G81.91 Hemiplegia, unspecified affecting right dominant side; E78.2 Mixed hyperlipidemia; G30.1 Alzheimer's disease with late onset; Z20.822 Contact with and (suspected) exposure to COVID-19; R26.2 Difficulty in walking, not elsewhere classified; F02.80 Dementia in other diseases classified elsewhere, unspecified severity, without behavioral disturbance, psychotic disturbance, mood disturbance, and anxiety; K52.9 Noninfective gastroenteritis and colitis, unspecified; I10 Essential (primary) hypertension; K21.00 Gastro-esophageal reflux disease with esophagitis, without bleeding; Z86.718 Personal history of other venous thrombosis and embolism; Z79.01 Long term (current) use of anticoagulants

== ENCOUNTER → 2023-06-23 | Outpatient (CLI) | payer MEDICARE ==
[~2023-06-23] MED LIST changes: +ESCITALOPRAM OX10 MG PO; +OMEPRAZOLE40 MG PO; +POTASSIUM CHLO20 ME4 PO; +PRAMIPEXOLE DI0.5 MG PO
== END | disposition home or self-care (01) ==
LOC: CT 06-19 08:00
PROVIDERS: ATTEND Nurse Practitioner Family
DX: K57.92 Diverticulitis of intestine, part unspecified, without perforation or abscess without bleeding (principal); J43.9 Emphysema, unspecified; I77.9 Disorder of arteries and arterioles, unspecified; I25.10 Atherosclerotic heart disease of native coronary artery without angina pectoris; K46.9 Unspecified abdominal hernia without obstruction or gangrene; N26.1 Atrophy of kidney (terminal)

== ENCOUNTER 2024-03-16 18:25 | Emergency (ER) | payer MEDICARE ==
[2024-03-16] MEDS ORDERED: IRON325 M1 PO (18:49)
[2024-03-16 19:26] LABS: BASO % 0.2 % (0.0-1.0); EOS # 0.1 10*3/uL (0.0-0.4); EOS % 0.8 % (1.0-4.0); HEMATOCRIT 41.9 % (37.0-47.0); MEAN CELL VOLUME 93.9 fl (81.0-99.0); MEAN CORPUSCULAR HGB 30.9 pg (27.0-31.0); MEAN CORPUSCULAR HGB CONC 32.9 g/dl (33.0-37.0); MONO # 0.7 10*3/uL (0.1-1.0); MONO % 7.6 % (3.0-9.0); NEUT # 6.7 10*3/uL (2.3-7.9); NEUT % 76.9 % (47.0-73.0); PLATELET COUNT AUTOMATED 182 10*3/uL (130-400); RED BLOOD COUNT 4.46 10*6/uL (4.10-5.10); WHITE BLOOD COUNT 8.8 10*3/uL (4.8-10.8)
[2024-03-16 19:46] LABS: POTASSIUM 4.3 mmol/L (3.4-5.1)
[2024-03-16 19:55] LABS: BILIRUBIN Negative (Negative); BLOOD Negative (Negative); CLARITY Clear (Clear); COLOR Yellow (Yellow); GLUCOSE Negative (Negative); KETONE Negative (Negative); LEUKO ESTERASE Negative (Negative); NITRITE Negative (Negative); PH 7.5 (4.5-8.0); SPECIFIC GRAVITY 1.015 (1.001-1.030)
[2024-03-16 20:24] LABS: BACTERIA 1+
== END 2024-03-16 22:34 ==
LOC: ED 18:25
PROVIDERS: Emergency Medicine
DX: R55 Syncope and collapse (principal); R10.84 Generalized abdominal pain; K21.9 Gastro-esophageal reflux disease without esophagitis; I11.0 Hypertensive heart disease with heart failure; I50.9 Heart failure, unspecified; Z98.890 Other specified postprocedural states

== ENCOUNTER 2024-03-26 09:47 | Emergency (ER) | payer MEDICARE, MEDICAID ==
[~2024-03-26] VITALS: Wt 93.4 kg
[~2024-03-26 09:47] MED LIST changes: +IRON325 M1 PO
[2024-03-26] MEDS ORDERED: PERCOCET 5-3251 EACH PO (13:18)
== END 2024-03-26 14:46 ==
LOC: ED 09:47
DX: M25.561 Pain in right knee (principal); M25.551 Pain in right hip; M79.651 Pain in right thigh; R22.41 Localized swelling, mass and lump, right lower limb; Z79.899 Other long term (current) drug therapy; Z79.82 Long term (current) use of aspirin; X58.XXXA Exposure to other specified factors, initial encounter; Y93.89 Activity, other specified; Y92.128 Other place in nursing home as the place of occurrence of the external cause; Y99.8 Other external cause status